=== PATIENT | female | born 1980 | race Caucasian/White ===

== ENCOUNTER 2022-02-28 16:08 | Emergency (ER) | payer SELFPAY ==
[~2022-02-28] VITALS: Ht 170.2 cm; Wt 90.0 kg
[~2022-02-28 16:08] MED LIST: BACTRIM DS1 TAB OR; BACTROBAN2 % EX; CIPROFLOXACN500 MG PO; FLEXERIL OR; NO; NO HOME MEDS; ULTRAM50 M1 PO
[2022-02-28 16:44] VITALS: BP 132/84
[2022-02-28 17:00] VITALS: BP 125/83
[2022-02-28 17:15] VITALS: BP 131/92
[2022-02-28 17:31] VITALS: BP 137/88
[2022-02-28 17:45] VITALS: BP 116/72
[2022-02-28 18:32] LABS: IMMATURE GRANULOCYTES 0.1 % (0.0-5.0); MEAN CORPUSCULAR HGB 22.6 pG CALC (26.0-32.0); NEUT# 3.35 thou/uL (2.00-7.15); RED BLOOD COUNT 3.71 mill/uL (4.20-5.60); RED CELL DISTRI WIDTH 15.4 % (11.5-15.5)
[2022-02-28 18:37] LABS: HEMOGLOBIN 8.4 g/dl (12.0-16.0); MEAN CELL VOLUME 75.5 fL CALC (80.0-100.0)
[2022-02-28] MEDS ORDERED: CHROMAGEN1 CAP PO (19:34)
[2022-02-28 19:36] VITALS: BP 116/72
== END 2022-02-28 19:41 | disposition home or self-care (01) | DRG 866 ==
LOC: ED 16:08
PROVIDERS: Family Medicine
DX: B34.9 Viral infection, unspecified (principal); D64.9 Anemia, unspecified